=== PATIENT | female | born 1985 | race Caucasian/White ===

== ENCOUNTER → 2020-12-23 | Outpatient (CLI) | payer BC | LOC: US 15:28 | DX: N92.6 Irregular menstruation, unspecified (principal); R10.9 Unspecified abdominal pain | CPT/HCPCS: 76830 ==

== ENCOUNTER 2021-03-11 16:30 | Emergency (ER) | payer BC ==
[2021-03-11 17:36] LABS: HEMOGLOBIN 12.5 gm/dl (12.3-15.3); RED BLOOD COUNT 4.63 M/UL (4.00-5.10); WHITE BLOOD COUNT 8.9 K/UL (4.5-11.0)
[2021-03-11 17:57] LABS: BUN/CREATININE RATIO 14 (0-10)
[2021-03-11] MEDS ORDERED: METOPROLOL TART25 MG PO (19:56)
== END 2021-03-11 20:13 | disposition home or self-care (01) ==
LOC: ER1 16:30
PROVIDERS: Nurse Practitioner; Preventive Medicine Occupational Medicine
DX: R07.89 Other chest pain (principal); R00.2 Palpitations; F17.200 Nicotine dependence, unspecified, uncomplicated
CPT/HCPCS: 36415; 71045; 80048; 80307; 81001; 82550; 82553; 83874; 84439; 84443; 84484; 85025; 85379; 93005; 99285